=== PATIENT | female | born 1970 | race Caucasian/White ===

== ENCOUNTER 2016-04-29 17:42 | Emergency (ER) | payer OTHER ==
[2016-04-29 17:56] VITALS: BP 141/82; PULSE 87; TEMP 99.1; BMI 35.2
--- NOTE | 2016-04-29 19:39 | PDOC ---
History of Present Illness - General Chief Complaint: Back Pain Stated Complaint: BACK PAIN Time Seen by Provider: 04/29/16 19:32 History Source: Patient Exam Limitations: No Limitations - History of Present Illness Initial Comments: 04/29/16 19:38 My chief complaint: Back pain left sided History of present illness: Pt. Is a 45-year-old female with a history of htn, lower back pain with multiple herniations that were minimal as noted on MRI of thoracic spine from a 04/30/2013 patient at that time was also complaining of left-sided lower back pain. She reports that she's had left sided lower back pain 1 month but worse the last 4 days. Patient denies any heavy lifting or pulling or tearing of heavy items. Patient reports that back pain on the left side has started to radiate down to her left buttock. Patient denies any urinary symptoms. Patient denies any radiation of pain down her left leg or any saddle anesthesia or numbness or weakness of legs. Denies any abdominal pain. Patient reports the pain left side is worse with movement or lying down on her back. Pain currently is an 8 out of 10 aching in nature. 04/29/16 20:21 04/29/16 21:47 Occurred: reports: other (one month worse in last 4 days) Severity: reports: moderate Pain Location: reports: back (left sided lower back pain with radiation to left buttock ) Method of Injury: Yes: unknown Modifying Factors: improves with: None Past History - Past Medical History Allergies/Adverse Reactions: Allergies Allergy/AdvReac Type Severity Reaction Status Date / Time No Known Drug Allergies Allergy Verified 04/29/16 17:49 Home Medications: Ambulatory Orders Albuterol Sulfate Inhaler - [Ventolin HFA Inhaler -] 2 inh PO Q4H PRN 09/11/15 Amlodipine Besylate [Norvasc -] 5 mg PO DAILY 09/11/15 Cetirizine HCl 10 mg PO DAILY 09/11/15 Fluticasone Prop 0.05% Nasal [Flonase -] 1 - 2 spray NS PRN PRN 09/11/15 Gabapentin 300 mg PO BID 09/11/15 Gemfibrozil 600 mg PO BID 09/11/15 Ibuprofen [Motrin -] 800 mg PO Q6H PRN #30 tablet 09/11/15 Ketotifen Fumarate [Allergy Eye] 5 ml OS PRN PRN 09/11/15 Montelukast Na [Singulair -] 10 mg PO HS 09/11/15 Zolpidem Tartrate 10 mg PO DAILY 09/11/15 Cyclobenzaprine HCl [Flexeril -] 10 mg PO Q8H PRN #21 tablet 04/29/16 Oxycodone HCl/Acetaminophen [Percocet 5-325 mg Tablet] 1 tab PO Q8H PRN #9 tablet MDD 3 04/29/16 Asthma: Yes GI Disorders: Yes Disorders: No HTN: Yes Hypercholesterolemia: Yes Liver Disease: No Thyroid Disease: Yes - Surgical History Neurologic Surgery: Yes (RIGHT) Orthopedic Surgery: Yes (RIGHT SHOULDER) - Psycho/Social/Smoking Cessation Hx Suicidal Ideation: No Smoking Status: Yes Smoking History: Former smoker Have you smoked in the past 12 months: No Number of Cigarettes Smoked Daily: 20 If you are a former smoker, when did you quit?: JAN 2015 Information on smoking cessation initiated: No 'Breaking Loose' booklet given: 09/11/15 Hx Alcohol Use: Yes (SOCIALLY) Substance Use Type: Alcohol Review of Systems - Review of Systems Able to Perform ROS?: Yes Constitutional: No: Symptoms Reported HEENTM: No: Symptoms Reported Respiratory: No: Symptoms reported Cardiac (ROS): No: Symptoms Reported ABD/GI: No: Symptoms Reported : No: Symptoms Reported Musculoskeletal: Yes: Back Pain (left sided lower back pain radiates to left buttock worse in last 4 days has had for one month), Muscle Pain (left sided lower back ) Integumentary: No: Symptoms Reported *Physical Exam - Vital Signs Last Vital Signs Temp Pulse Resp BP Pulse Ox 99.1 F 87 18 141/82 100 04/29/16 17:49 04/29/16 17:49 04/29/16 17:49 04/29/16 17:49 04/29/16 17:49 - Physical Exam General Appearance: Yes: Appropriately Dressed Respiratory/Chest: positive: Lungs Clear, Normal Breath Sounds Cardiovascular: positive: Regular Rhythm, Regular Rate, S1, S2 Gastrointestinal/Abdominal: positive: Normal Bowel Sounds, Tender, Soft. negative: Organomegaly, Increased Bowel Sounds, Distended, Guarding, Rebound, Tenderness, Hepatomegaly, Spleenomegaly Musculoskeletal: positive: Normal Inspection, Decreased Range of Motion (from waist, pain left lateral lower back with palpation). negative: CVA Tenderness, CVA Tenderness (R), CVA Tenderness (L), Vertebral Tenderness Extremity: positive: Normal Capillary Refill, Normal Inspection, Normal Range of Motion Integumentary: positive: Normal Color Neurologic: positive: Alert, Normal Response, Motor Strength 5/5 (lower extremities b/l ), Respond to painful stimul, Other (negative SLR b/l ). negative: Sensory Deficit (legs ) Deep Tendon Reflexes: Knee (L): 3+, Knee (R): 3+ Medical Decision Making - Medical Decision Making 04/29/16 20:20 Pt. Is a 45-year-old female with a history of lower back pain with multiple herniations that were minimal as noted on MRI of thoracic spine from a 2013 patient at that time was also complaining of left-sided lower back pain. She reports that she's had left sided lower back pain 1 month but worse the last 4 days. Patient denies any heavy lifting or pulling or tearing of heavy items. Patient reports that back pain on the left side has started to radiate down to her left buttock. Patient denies any urinary symptoms. Patient denies any radiation of pain down her left leg or any saddle anesthesia or numbness or weakness of legs. Denies any abdominal pain. Patient reports the pain left side is worse with movement or lying down on her back. Pain currently is an 8 out of 10 aching in nature. 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 R/O urinary infection left sided lower back pain 04/29/16 20:21 PLAN: Urine analysis urine Hcg toradol 60 mg IM now 04/29/16 20:21 Laboratory Tests 04/29/16 19:40 Urine Color Ltyellow Urine Appearance Slcloudy Urine pH 6.0 Ur Specific [place] 1.020 Urine Protein Negative Urine Glucose (UA) Negative Urine Ketones Negative Urine Blood Negative Urine Nitrite Negative Urine Bilirubin Negative Urine Urobilinogen Negative Ur Leukocyte Esterase Negative Urine HCG, Qual Negative 04/29/16 20:28 04/29/16 21:08 pain has lessened slightly would like to go home follow up with orthopedist for further evaluation flexeril 10 mg q 8 hr prn muscle spasm percocet 5mg /325 mg every 8 hr prn severe pain # 9 *DC/Admit/Observation/Transfer Diagnosis at time of Disposition: Low back pain Qualifiers: Chronicity: chronic Back pain laterality: left Sciatica presence: with sciatica presence unspecified Qualified Code(s): M54.5 - Low back pain - Discharge Dispostion Disposition: HOME Condition at time of disposition: Stable - Prescriptions Prescriptions: Cyclobenzaprine HCl [Flexeril -] 10 mg PO Q8H PRN #21 tablet PRN Reason: Muscle Spasms Oxycodone HCl/Acetaminophen [Percocet 5-325 mg Tablet] 1 tab PO Q8H PRN #9 tablet MDD 3 PRN Reason: Severe Pain - Referrals Referrals: Anila Hutchinson MD [Primary Care Provider] - Wagner Mcclain MD [Staff Physician] - - Patient Instructions Additional Instructions: follow Up with orthopedist as soon as possible Avoid any strenuous activities or exercise Return to emergency room if symptoms worsen any numbness of groin or legs Patient voiced understanding of discharge instructions all questions were answered - Post Discharge Activity Work/School Note: Back to Work
[2016-04-29 19:54] LABS: URINE APPEARANCE SLCLOUDY; URINE BILIRUBIN NEGATIVE (NEGATIVE); URINE BLOOD NEGATIVE (NEGATIVE); URINE COLOR LTYELLOW; URINE GLUCOSE (UA) NEGATIVE (NEGATIVE); URINE KETONE NEGATIVE (NEGATIVE); URINE LEUK ESTERASE NEGATIVE (NEGATIVE); URINE NITRITE NEGATIVE (NEGATIVE); URINE PROTEIN NEGATIVE (NEGATIVE); URINE UROBILINOGEN NEGATIVE E.U./dl (0.2-1.0)
[2016-04-29] MEDS ORDERED: KETOROLAC TROMETHAMINE 60 MG/2 ML VIAL ONE (20:21)
[2016-04-29] MEDS ORDERED: diazePAM 5 MG TABLET PO ONE (20:33)
[2016-04-29] MEDS ORDERED: diazePAM 5 MG TABLET ONE (20:47)
[2016-04-29] MEDS ORDERED: KETOROLAC TROMETHAMINE 60 MG/2 ML VIAL IM ONE (21:08)
== END 2016-04-29 21:47 | disposition home or self-care (01) ==
LOC: JER 17:42
PROC: 3E0233Z Introduction of Anti-inflammatory into Muscle, Percutaneous Approach (ICD-10-PCS; principal; 2016-04-29)
DX: M54.5 Low back pain (principal); G89.29 Other chronic pain; I10 Essential (primary) hypertension; J45.909 Unspecified asthma, uncomplicated; E78.00 Pure hypercholesterolemia, unspecified; E07.9 Disorder of thyroid, unspecified; Z87.891 Personal history of nicotine dependence
CPT/HCPCS: 81003; 84703; 96372; 99281-25